=== PATIENT | male | born 1935 | race Caucasian/White ===

== ENCOUNTER → 2017-06-06 | Outpatient (CLI) | payer MEDICARE, OTHER ==
[2016-08-21 08:38] VITALS: BP 112/84
[~2017-06-06] MED LIST: AMOX1TAB10 PO; CA C1TAB28 PO; CARV12.5 PO; CARV6.252 PO; CHOL10003 PO; CIPR2.5D OS; CITA20TA9 PO; CLIN150C14 PO; CONTRAST GIVEN MC PRN; CYAN10005 PO; CYAN1TAB28 PO; DICL112S2 TP; DOXY100T9 PO; HYDR-971 PO; IOHEXOL 300 MG/ML 75 ML VIAL IV ONE; IPRA15SP NS; LEVO500T59 PO; LISI-338 PO; MULT1TAB13 PO; MULT1TAB52 PO; PANT40TA3 PO; PROAIR HFA8.5 GM INH; WARF3TAB54 PO; WARF5TAB7 PO; WARF7.5T48 PO
--- NOTE | 2017-06-06 11:45 | RAD ---
CT chest with contrast 06/06/2017 Clinical indication: History of lung carcinoma. Comparison: CT chest December 12, 2016, September 01, 2016, PET/CT June 15, 2016. Technique: Multiple CT images of the chest were obtained following uneventful intravenous administration of 75 mL Omnipaque 300. Coronal and sagittal reformations were obtained. PQRS Compliance Statement: One or more of the following individualized dose reduction techniques were utilized for this examination: 1. Automated exposure control 2. Adjustment of the mA and/or kV according to patient size 3. Use of iterative reconstruction technique Findings: Chest: There is mild generalized cardiomegaly without significant pericardial effusion. Coronary artery calcifications. The thoracic aorta is tortuous and normal in caliber with mild scattered calcified atheromatous disease. There is left lung volume loss with slight progression in left hilar/suprahilar consolidation. Interval increase in partially loculated moderate left pleural effusion with adjacent atelectasis. There is a stable 7 mm noncalcified nodule in the left lower lobe (series 2/image 46). There is a stable calcified pulmonary nodule in the right lower lobe. Development of peribronchial vascular groundglass and nodular opacities in the right lower lobe. Stable minimal scarring in the right upper lobe. Stable mildly enlarged subcarinal lymph node measuring 11 mm (series 2/image 30). There is multilevel thoracic spondylosis with no destructive osseous lesions. Limited images of the upper abdomen: Persistent left hepatic pneumobilia. Prior cholecystectomy. Bilateral renal cysts and additional renal hypodensities which are too small to definitively characterize. Impression: 1. Slight progression of left hilar/suprahilar consolidation, which may represent resolution of posttherapeutic fibrosis, however residual tumor cannot be excluded. 2. Stable left lower lobe measuring noncalcified 7 mm pulmonary nodule. Continued follow-up is recommended. 3. Stable mildly enlarged subcarinal lymphadenopathy. Indeterminate between reactive and nicky metastatic disease. 4. Development of right lower lobe peribronchovascular airspace opacities which may represent pneumonitis, aspiration or infection. 5. Progression in now moderate partially loculated left pleural effusion.
== END | disposition home or self-care (01) ==
LOC: CT 09:10
PROVIDERS: ATTEND Radiology Radiation Oncology
DX: C34.90 Malignant neoplasm of unspecified part of unspecified bronchus or lung (principal); J90 Pleural effusion, not elsewhere classified
CPT/HCPCS: 71260; Q9967

== ENCOUNTER → 2018-01-10 | Outpatient (CLI) | payer MEDICARE, OTHER ==
[~2018-01-10] MED LIST changes: -AMOX1TAB10 PO; -CA C1TAB28 PO; -CARV12.5 PO; -CARV6.252 PO; -CHOL10003 PO; -CIPR2.5D OS; -CITA20TA9 PO; -CLIN150C14 PO; +CONTRAST GIVEN MC; -CONTRAST GIVEN MC PRN; -CYAN10005 PO; -CYAN1TAB28 PO; -DICL112S2 TP; -DOXY100T9 PO; -HYDR-971 PO; +IOHEXOL 300 MG/ML 100ML VIAL. IV; -IOHEXOL 300 MG/ML 75 ML VIAL IV ONE; -IPRA15SP NS; -LEVO500T59 PO; -LISI-338 PO; -MULT1TAB13 PO; -MULT1TAB52 PO; -PANT40TA3 PO; -PROAIR HFA8.5 GM INH; -WARF3TAB54 PO; -WARF5TAB7 PO; -WARF7.5T48 PO
[2018-01-10 09:55] LABS: CREATININE 1.2 mg/dL (0.7-1.3)
[2018-01-10 09:55] LABS: GFR 58.1
[2018-01-10] MEDS: IOHEXOL 300 MG/ML 100ML VIAL. IV (10:36)
== END | disposition home or self-care (01) ==
LOC: CT 09:07
DX: C34.92 Malignant neoplasm of unspecified part of left bronchus or lung (principal); Z85.118 Personal history of other malignant neoplasm of bronchus and lung; Z98.890 Other specified postprocedural states
CPT/HCPCS: 36415; 71260; 82565; Q9967

== ENCOUNTER → 2018-04-11 | Outpatient (CLI) | payer MEDICARE, OTHER ==
[~2018-04-11] MED LIST changes: -CONTRAST GIVEN MC
[2018-04-11 08:41] LABS: GFR 64.1
[2018-04-11 08:41] LABS: CREATININE 1.1 mg/dL (0.7-1.3)
== END | disposition home or self-care (01) ==
LOC: CT 08:12
DX: C34.32 Malignant neoplasm of lower lobe, left bronchus or lung (principal); N28.1 Cyst of kidney, acquired; K57.30 Diverticulosis of large intestine without perforation or abscess without bleeding; J84.10 Pulmonary fibrosis, unspecified
CPT/HCPCS: 36415; 71260; 82565; Q9967

== ENCOUNTER → 2018-10-22 | Outpatient (CLI) | payer MEDICARE, OTHER ==
[2016-08-21 08:38] VITALS: BP 112/84
[~2018-10-22] MED LIST changes: +AMOX1TAB10 PO; +CA C1TAB28 PO; +CARV12.5 PO; +CARV6.2511 PO; +CHOL10003 PO; +CIPR2.5D OS; +CITA20TA9 PO; +CLIN150C14 PO; +CYAN10005 PO; +CYAN1TAB28 PO; +DICL112S2 TP; +DOXY100T9 PO; +HYDR-2761 PO; +HYDR-3164 PO; -IOHEXOL 300 MG/ML 100ML VIAL. IV; +IOHEXOL 300 MG/ML 100ML VIAL. IV ONE; +IPRA15SP NS; +LEVO500T59 PO; +LISI-338 PO; +MULT1TAB13 PO; +MULT1TAB52 PO; +PANT40TA3 PO; +PROAIR HFA8.5 GM INH; +WARF-31 PO; +WARF-78 PO; +WARF3TAB54 PO; +WARF6TAB49 PO; +WARF7.5T48 PO
[2018-10-22 08:29] LABS: CREATININE 1.1 mg/dL (0.7-1.3); GFR 64.1
--- NOTE | 2018-10-22 10:24 | RAD ---
EXAM: CT Chest with IV contrast CLINICAL HISTORY: H/O LUNG CANCER S/P TREATMENT F/U COMPARISON: CT chest 04/11/2018, 01/10/2018, TECHNIQUE: CT of the chest following the administration of intravenous contrast. Axial, coronal and sagittal reformatted images were generated. ---PQRS compliance statement - One or more of the following individualized dose reduction techniques were utilized for this study: 1. Automated exposure control 2. Adjustment of the mA and/or kV according to patient size 3. Use of iterative reconstruction technique--- FINDINGS: Chest: The heart is mildly enlarged most prominent within the left and right atrium. No mediastinal or hilar lymphadenopathy. No axillary lymphadenopathy. Mild leftward mediastinal shift given associated volume loss/postsurgical change left lung. Trace left pleural effusion. No pneumothorax. Changes of partial left pneumonectomy are seen with associated scarring and pleural thickening. No definite superimposed new nodular soft tissue densities identified within the background changes above. Stable 5 mm left lower lobe elongated nodule (image 48). Right lower lobe calcified granuloma is seen. Small hiatal hernia. Visualized Upper abdomen: Cholecystectomy clips are seen. Left hepatic lobe is small, likely from prior lobectomy. Bilateral renal hypodense lesions, grossly stable. Colonic diverticula are seen. Adrenal glands are normal. Bones: Degenerative changes of the spine are seen. No definite aggressive osseous lesion is seen. IMPRESSION: 1. Postoperative changes of partial left lung resection with associated chronic parenchymal changes. No definite CT evidence for new/recurrent mass. 2. No thoracic lymphadenopathy. Electronically signed by: Jaden Aldana MD (10/22/2018 10:20 AM) [facility]
== END | disposition home or self-care (01) ==
LOC: CT 07:56
PROVIDERS: ATTEND Radiology Radiation Oncology
DX: Z12.2 Encounter for screening for malignant neoplasm of respiratory organs (principal); K57.30 Diverticulosis of large intestine without perforation or abscess without bleeding; K44.9 Diaphragmatic hernia without obstruction or gangrene; Z90.49 Acquired absence of other specified parts of digestive tract
CPT/HCPCS: 36415; 71260; 82565; Q9967

== ENCOUNTER → 2019-03-03 | Day surgery (SDC) | payer MEDICARE, OTHER ==
[~2019-03-03] MED LIST changes: +ALBU2.5V8 INH; -IOHEXOL 300 MG/ML 100ML VIAL. IV ONE; +IV RINGERS,LACTATED 1000ML 1,000 ML IV SCH; +LIDOCAINE 1% PF 2 ML VIAL. ID PRN; +LIDOCAINE 2% PF 5 ML VIAL. ONE; +MIDAZOLAM HCL/PF 2 MG/2 ML VIAL. IV PRN; +MONT10TA9 PO; -PROAIR HFA8.5 GM INH; +PROPOFOL 20 ML IV ONE; +fentaNYL PF VIAL 100 MCG/2 ML VIAL IV PRN
--- NOTE | 2019-03-03 13:18 | PDOC1 ---
History and Physical Date of Admission Date of Admission DATE: 03/03/19 TIME: 13:11 Identification/Chief Complaint Chief Complaint "Dysphagia" Source Source: Chart review, Patient History of Present Illness History of Present Illness 84 y/o male with persistent "globus" and intermittent dysphagia. Chronic PPI use for heartburn. [place] to have hiatal hernia. Prior EGD's/dilations, though records not available. No PUD. S/p yohannes/ERCP for retained stone. No D, C, H, M. May have had colonoscopy a couple of years ago, maybe with polyps. S/p radiation therapy for SCCA left lung. Past Medical History Cardiovascular: CHF, HTN, Hyperlipidemia Pulmonary: COPD Heme/Onc: Anemia NOS, Cancer (lung) Musculoskeletal: Osteoarthritis Renal/: Benign prostatic enlarg. Past Surgical History Past Surgical History: Cholecystectomy, Cataract Removal, Hernia Repair, Tonsillectomy, Other (vasectomy, lung surgery) Family History Family History: Other (not pertinent) Social History Smoke: Quit ALCOHOL: occassional Drugs: None Current Medications Current Medications Current Medications Midazolam HCl (Versed) 2 mg PRN 1X PRN IV PRIOR TO PROCEDURE; Start 03/03/19 at 13:00; Stop 03/04/19 at 12:59 Fentanyl Citrate (Fentanyl 2ml Vial) 25 mcg PRN Q5MIN PRN IV X 2 DOSES FOR PAIN; Start 03/03/19 at 13:00; Stop 03/04/19 at 12:59 Fentanyl Citrate (Fentanyl 2ml Vial) 50 mcg PRN Q5MIN PRN IV X 2 DOSES FOR PAIN; Start 03/03/19 at 13:00; Stop 03/04/19 at 12:59 Ringer's Solution 1,000 ml @ 125 mls/hr Q8H IV Last administered on 03/03/19at 12:51; Start 03/03/19 at 12:46; Stop 03/04/19 at 00:45 Lidocaine HCl (Xylocaine-Mpf 1% 2ml Vial) 2 ml 1X PRN PRN ID IV START; Start 03/03/19 at 13:00; Stop 03/04/19 at 12:59 Active Scripts Active Carvedilol (Carvedilol) 6.25 Mg Tablet 6.25 Mg PO BIDWMEALS 30 Days Reported Montelukast Sodium Tablet (Montelukast Sodium) 10 Mg Tablet 10 Mg PO HS Coumadin (Warfarin Sodium) 6 Mg Tablet 5 Mg PO DAILY Proair Hfa Inhaler (Albuterol Sulfate) 8.5 Gm Hfa.aer.ad 1 Puff INH PRN Q6HRS PRN Celexa (Citalopram Hydrobromide) 20 Mg Tablet 1 Tab PO DAILY Protonix (Pantoprazole Sodium) 40 Mg Tablet.dr 1 Tab PO DAILY Vitamin D3 (Cholecalciferol (Vitamin D3)) 1,000 Unit Tablet 2 Tab PO DAILY Vitamin B-12 (Cyanocobalamin (Vitamin B-12)) 1,000 Mcg Tablet 1 Tab PO DAILY Multivitamins (Multivitamin) 1 Each Tablet 1 Tab PO DAILY Allergies Allergies: Coded Allergies: No Known Drug Allergies (Unverified , 03/03/19) ROS Review of System Otherwise negative. Physical Exam General: Alert, Oriented X3, Cooperative, No acute distress Lungs: Clear to auscultation Heart: S1S2, RRR, no gallops, no murmurs Abdomen: Normal bowel sounds, Soft, No tenderness, No hepatosplenomegaly, No masses Rectal Exam: not examined Extremities: No cyanosis, No edema Skin: No significant lesion Neuro: Normal gait, Normal speech, Strength at 5/5 X4 ext, Normal tone, Sensation intact, Cranial nerves 3-12 NL, Reflexes 2+ Psych/Mental Status: Mental status NL, Mood NL Vitals Vitals Vital Signs Date Time Temp Pulse Resp B/P (MAP) Pulse Ox O2 Delivery O2 Flow Rate FiO2 03/03/19 12:42 Room Air 03/03/19 12:39 98.5 91 20 97 98.5 VTE Prophylaxis Ordered VTE Prophylaxis Devices: No VTE Pharmacological Prophylaxi: No Assessment/Plan Assessment/Plan IMP: Dysphagia PLAN: EGD. OVI OCHOA MD Mar 03, 2019 13:18
--- NOTE | 2019-03-03 13:34 | PDOC4 ---
PROCEDURE Procedure EGD/dilation Indicaton: Intermittent dysphagia Meds: Per anesthesia. 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 G--Small/medium HH D--Normal to second portion. --Dilated with 52F [place] x 1, minimal resistance/no blood on dilator. [place]. well. IMP: Shatzki's ring REC: continue meds and diet. OK to resume warfarin. F/u in 2 weeks. Consider formal swallow evaluation if still issues. Thanks. OVI OCHOA MD Mar 03, 2019 13:34
[2019-03-03 14:20] VITALS: BP 104/70
== END | disposition home or self-care (01) ==
LOC: SURG 12:02
PROVIDERS: ATTEND Internal Medicine Gastroenterology
DX: K22.2 Esophageal obstruction (principal); K44.9 Diaphragmatic hernia without obstruction or gangrene; F41.9 Anxiety disorder, unspecified; K21.0 Gastro-esophageal reflux disease with esophagitis; M19.90 Unspecified osteoarthritis, unspecified site; Z86.010 Personal history of colon polyps; Z85.118 Personal history of other malignant neoplasm of bronchus and lung; Z85.828 Personal history of other malignant neoplasm of skin; Z79.899 Other long term (current) drug therapy; Z98.52 Vasectomy status; Z98.890 Other specified postprocedural states; Z72.89 Other problems related to lifestyle; Z87.891 Personal history of nicotine dependence; Z90.49 Acquired absence of other specified parts of digestive tract
CPT/HCPCS: 43235; 43450; J2001; J2704

== ENCOUNTER → 2019-03-20 | Outpatient (CLI) | payer MEDICARE, OTHER ==
[2019-03-03 14:20] VITALS: BP 104/70
[~2019-03-20] MED LIST changes: -IV RINGERS,LACTATED 1000ML 1,000 ML IV SCH; -LIDOCAINE 1% PF 2 ML VIAL. ID PRN; -LIDOCAINE 2% PF 5 ML VIAL. ONE; -MIDAZOLAM HCL/PF 2 MG/2 ML VIAL. IV PRN; -PROPOFOL 20 ML IV ONE; -fentaNYL PF VIAL 100 MCG/2 ML VIAL IV PRN
--- NOTE | 2019-03-21 07:45 | RAD ---
Chest, 2 views, 03/20/2019: HISTORY: Dyspnea, productive cough, previous lung cancer There is volume loss on the left with pleural thickening, a mass effect at the left hilum and mild streaky parahilar opacities. Similar findings were present on the conversion worker image of the 10/22/2018 CT chest study. The findings are apparently post therapeutic in this patient with a history of lung cancer. The right chest is clear. No right-sided pleural fluid is seen. The heart appears to be mildly enlarged. There is calcific plaquing of the aorta with enlargement of the proximal descending thoracic aorta. There is moderate spurring in the spine. IMPRESSION: 1. Chronic left-sided pleural-parenchymal opacities and volume loss similar to that seen on the 10/22/2018 CT exam. A component of residual or recurrent neoplasm cannot be excluded radiographically. 2. No new chest abnormality is detected. Electronically signed by: Talib Ivy MD (03/21/2019 7:41 AM) [facility]
== END | disposition home or self-care (01) ==
LOC: RAD 16:49
PROVIDERS: ATTEND Internal Medicine
DX: I77.810 Thoracic aortic ectasia (principal); I70.0 Atherosclerosis of aorta; R91.8 Other nonspecific abnormal finding of lung field; M46.00 Spinal enthesopathy, site unspecified; Z85.118 Personal history of other malignant neoplasm of bronchus and lung
CPT/HCPCS: 71046

== ENCOUNTER → 2019-04-07 | Outpatient (CLI) | payer MEDICARE, OTHER ==
[2019-03-03 14:20] VITALS: BP 104/70
--- NOTE | 2019-04-07 09:38 | RAD ---
EXAM: CT of the chest without intravenous contrast. HISTORY: Lung cancer, cough. TECHNIQUE: Computed tomography of the chest was performed without intravenous contrast. COMPARISON: 10/22/2018. FINDINGS: Images of the upper abdomen reveal changes of cholecystectomy. Pneumobilia is noted on the left. There is a small hiatal hernia. Small cysts are noted bilaterally in the kidneys. Small calcifications at the pancreatic tail suggest prior pancreatitis. Left colonic diverticulosis is moderate. Bone windows reveal no suspicious lesions. 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 The amount of perihilar consolidation has increased since the prior study. No clear recurrent mass is distinguishable without contrast. A nodule in the left base measures 10 x 5 mm on image 43 and has correlates on prior studies. It appears more solid, but post inflammatory change is favored. There is no pleural effusion. A right-sided prevascular lymph node on image 24 measures 12 x 9 cm and has significantly increased from 5 mm previously. No other enlarged nodes are seen. The heart is at least mildly enlarged. There are atherosclerotic calcifications of the coronary arteries. There is no pericardial effusion. IMPRESSION: 1. A right sided prevascular node has increased in size since the prior examination. This is indeterminate but concerning in the setting. PET/CT could be useful in restaging if there is persistent concern. 2. Increased consolidation on the left is consistent with progression of radiation fibrosis. An underlying mass is not identified. PET/CT is more sensitive for underlying active disease in the setting. 3. Nodules in the left lower lobe are most likely postinflammatory. Attention on further follow-up. 4. Cardiomegaly. 5. Small hiatal hernia. *One or more of the following individualized dose reduction techniques were utilized for this examination: 1. Automated exposure control. 2. Adjustment of the mA and/or kV according to patient size. 3. Use of iterative reconstruction technique.
== END | disposition home or self-care (01) ==
LOC: CT 08:17
PROVIDERS: ATTEND Internal Medicine
DX: I51.7 Cardiomegaly (principal); I25.10 Atherosclerotic heart disease of native coronary artery without angina pectoris; R91.8 Other nonspecific abnormal finding of lung field; K44.9 Diaphragmatic hernia without obstruction or gangrene; N28.1 Cyst of kidney, acquired; K86.89 Other specified diseases of pancreas; K57.30 Diverticulosis of large intestine without perforation or abscess without bleeding; Z85.118 Personal history of other malignant neoplasm of bronchus and lung; Z90.49 Acquired absence of other specified parts of digestive tract
CPT/HCPCS: 71250

== ENCOUNTER → 2019-04-10 | Outpatient (CLI) | payer MEDICARE, OTHER ==
[2019-03-03 14:20] VITALS: BP 104/70
--- NOTE | 2019-04-10 17:13 | RAD ---
EXAM: PET/CT SKULL BASE TO MID THIGH. HISTORY: Lung cancer restaging. Increased left hilar masslike opacity and mediastinal lymph nodes. COMPARISON: 06/15/2016, 10/22/2018, 04/07/2019. TECHNIQUE: CT was performed from the skull base through the mid thighs for the purposes of attenuation correction. 14.5 mCi F-18 fluorodeoxyglucose (FDG) was administered intravenously. After an uptake period, positron emission tomography was performed from the skull base through the mid thighs. The PET and CT data were fused and interpreted in combination a dedicated workstation. Blood glucose level was 122 mg/dL at the time of FDG administration. FINDINGS: The larger region of left perihilar consolidation is diffusely hypermetabolic, with consistent with extensive recurrence. Maximum SUV is up to 20.6. There is also extensive involvement throughout the mediastinal and supraclavicular lymph nodes. The supraclavicular nodes are small but demonstrate maximum SUV up to 9.4 on the right. Right hilar, lateral aortic, prevascular and subcarinal nodes are also diffusely involved. Maximum SUV in the subcarinal station is 22.4. Hypermetabolism extends inferiorly along the pericardium laterally, suggesting involvement. Multiple small left epiphrenic lymph nodes and paraspinal nodes are involved. Activity along the left pleura is also consistent with involvement. A small celiac node on the left is involved. Scattered uptake along multiple bowel loops is likely from peristalsis. Additional CT findings include changes of cholecystectomy. There are small cysts bilaterally in the kidneys. Pneumobilia is noted on the left. Infrarenal abdominal aortic ectasia measures up to 2.7 cm. Sigmoid diverticulosis is moderate to severe. The prostate is moderately to severely enlarged. Bladder wall thickening indicates chronic outlet obstruction or inflammation. There is a small to moderate hiatal hernia. The heart is moderately enlarged in a predominantly right-sided pattern. Coronary atherosclerotic calcifications are noted. There are changes of bilateral cataract surgery. A right lower lobe nodule appears calcified and is likely an old granuloma. IMPRESSION: 1. Extensive hypermetabolism throughout left perihilar region of posttreatment change is consistent with extensive recurrence. Supraclavicular and mediastinal lymph nodes are diffusely involved. Involvement of the left pleura and pericardium is also suspected.
== END | disposition home or self-care (01) ==
LOC: PETSC 10:34
PROVIDERS: ATTEND Internal Medicine Pulmonary Disease
DX: J98.59 Other diseases of mediastinum, not elsewhere classified (principal); I77.819 Aortic ectasia, unspecified site; K57.30 Diverticulosis of large intestine without perforation or abscess without bleeding; I51.7 Cardiomegaly; K44.9 Diaphragmatic hernia without obstruction or gangrene; N40.0 Benign prostatic hyperplasia without lower urinary tract symptoms; I25.10 Atherosclerotic heart disease of native coronary artery without angina pectoris; R91.1 Solitary pulmonary nodule; Z90.49 Acquired absence of other specified parts of digestive tract; Z85.118 Personal history of other malignant neoplasm of bronchus and lung
CPT/HCPCS: 78815; A9552